=== PATIENT | female | born 1985 | race African-American/Black ===

== ENCOUNTER 2023-01-28 08:38 | Emergency (ER) | payer MEDICAID ==
[~2023-01-28] VITALS: Ht 170.2 cm; Wt 80.4 kg
[~2023-01-28 08:38] MED LIST: ALBUPOW26
[2023-01-28 09:30] VITALS: BP 109/69; PULSE 75; RESP 16; TEMP 98.5; O2SAT 99
[2023-01-28] MEDS ORDERED: CEPH500C PO (10:03)
[2023-01-28] MEDS ORDERED: ERY05OO OP (10:03)
== END 2023-01-28 10:09 | disposition home or self-care (01) ==
LOC: ER 08:38
DX: H00.14 Chalazion left upper eyelid (principal); J45.909 Unspecified asthma, uncomplicated; Z79.2 Long term (current) use of antibiotics; Z79.899 Other long term (current) drug therapy

== ENCOUNTER 2024-03-24 06:06 | Emergency (ER) | payer MEDICAID ==
[~2024-03-24] VITALS: Ht 170.2 cm; Wt 77.7 kg
[~2024-03-24 06:06] MED LIST changes: +CEPH500C PO; +ERY05OO OP
--- NOTE | 2024-03-24 06:46 | ED.PDOC ---
Musculoskeletal HPI Comments 38Y F presents to ED for chief complaint fall injury. Pt states she slipped on water yesterday at approximately 1800, causing her to fall and land on the left side of her body. Pt now presents with lt shoulder pain, lt forearm pain, and lt knee pain. Pt also has a dime-sized bruise on the lt knee. Pt denies head trauma and LOC. No other symptoms reported. Chief Complaint: Fall Injury Time Seen by MD: 06:25 Primary Care Provider: JANE Rosales Notes: Nurses Notes, Medications, Allergies Allergies: Coded Allergies: NO KNOWN ALLERGIES (Unverified , 12/13/11) Home Meds Active Scripts Cephalexin Monohydrate (Cephalexin) 500 Mg Cap, 500 MG PO QID for 5 Days, #20 CAP 0 Refills Prov:HETAL INGRAM PAYROLL HUMAN RESOURCES ASSISTANT 01/28/23 Erythromycin (Erythromycin) 5 Mg/Gm Oin, 1 APPLIC OP TID for 7 Days, #5 GRAMS 0 Refills Prov:HETAL INGRAM PAYROLL HUMAN RESOURCES ASSISTANT 01/28/23 Reported Medications Albuterol (Albuterol) Pow 12/13/11 Information Source: Patient Mode of Arrival: Ambulatory Location: Left Extremity Location: Forearm, Knee, Shoulder Timing: Hours Severity: Mild Able to Move Extremity: Yes Bear Weight: Limited Pain: Mild Mechanism: Unknown Circumstances: Fall Onset of Symptoms: After Trauma Symptoms: Pain DVT Risk Factors: NONE Associated signs and symptoms: Shoulder pain, Forearm pain, Knee pain Past Medical History PAST MEDICAL HISTORY: Asthma 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: No 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 INSPECTOR History Family History Family History: Reviewed,noncontributory to illness, Unobtainable Social History Smoker: Non-Smoker Alcohol: Occasionally Drugs: Marijuana Lives In: Home Constitutional: denies: chills, diaphoresis, fatigue, fever, malaise, sweats, weakness, others EENTM: denies: blurred vision, double vision, ear bleeding, ear discharge, ear drainage, ear pain, ear ringing, eye pain, eye redness, hearing loss, mouth pain, mouth swelling, nasal discharge, nose bleeding, nose congestion, nose pain, photophobia, tearing, throat pain, throat swelling, voice changes, others Respiratory: denies: cough, hemoptysis, orthopnea, SOB at rest, shortness of breath, SOB with excertion, stridor, wheezing, others Cardiovascular: denies: chest pain, dizzy spells, diaphoresis, Dyspnea on exert ion, edema, irregular heart beat, left arm pain, lightheadedness, palpitations, PND, syncope, others Gastrointestinal: denies: abdomen distended, abdominal pain, blood streaked bowels, constipated, diarrhea, dysphagia, difficulty swallowing, hematemesis, melena, nausea, poor appetite, poor fluid intake, rectal bleeding, rectal pain, vomiting, others Genitourinary: denies: abnormal vagina bleeding, burning, dyspareunia, dysuria, flank pain, frequency, hematuria, incontinence, pain, , vagina discharge, urgency, others Neurological: denies: dizziness, fainting, headache, left sided numbness, left sided weakness, numbness, paresthesia, pre-existing deficit, right sided numbness, right sided weakness, seizure, speech problems, tingling, tremors, weakness, others Musculoskeletal: reports: others (lt knee pain, lt forearm pain, lt shoulder pain); denies: back pain, gout, joint pain, joint swelling, muscle pain, muscle stiffness, neck pain Integumetry: denies: bruises, change in color, change in hair/nails, dryness, laceration, lesions, lumps, rash, wounds, others Allergic/Immunocompromised: denies: Difficulty Healing, Frequent Infections, Hives, Itching, others Hematologic/Lymphatic: denies: anemia, blood clots, easy bleeding, easy bruising, swollen glands, others Endocrine: denies: excessive hunger, excessive sweating, excessive thirst, excessive urination, flushing, intolerance to cold, intolerance to heat, unexplained weight gain, unexplained weight loss, others Psychiatric: denies: anxiety, bipolar disorder, depression, hopeless, panic disorder, schizophrenia, sleepless, suicidal, others All Other Systems: Reviewed and Negative Physical Exam General Appearance: No Apparent Distress, Normal HEENT: Normal ENT Inspection, Pharynx Normal, TMs Normal Neck: Full Range of Motion, Non-Tender, Normal, Normal Inspection Respiratory: Chest Non-Tender, Lungs Clear, No Accessory Muscle Use, No Respiratory Distress, Normal Breath Sounds Cardiovascular: No Edema, No JVD, No Murmur, No Gallop, Normal Peripheral Pulses, Regular Rate/Rhythm Breast Exam: Deferred Gastrointestinal: No Organomegaly, Non Tender, No Pulsatile Mass, Normal Bowel Sounds, Soft Genitalia: Deferred Pelvic: Deferred Rectal: Deferred Extremities: No calf tenderness, Normal capillary refill, Normal inspection, Normal range of motion, Non-tender, No pedal edema Musculoskeletal : Location: Left Extremity Location: Forearm, Shoulder Apperance: Normal, Tenderness: Mild Neurologic: Alert, 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 Was a procedure done?: No Differential Diagnosis EXT Differential Diagnosis: Fracture, Sprain, Dislocation, Laceration, DJD, Contusion, Strain, Neurovascular injury, Arthritis, Bursitis X-Ray, Labs, Meds, VS Vital Signs Date Time Temp Pulse Resp B/P (MAP) Pulse Ox O2 Delivery O2 Flow Rate FiO2 03/24/24 07:47 Room Air* 0 21 03/24/24 07:44 97.7 67 16 121/84 (96) 99 97.7 03/24/24 07:44 67 16 99 Room Air 03/24/24 06:23 98.0 87 16 121/99 (106) 98 Current Medications Medications (Trade) Dose Ordered Sig/Korina Route Start Time Stop Time Status Last Admin Acetaminophen (Tylenol Tablet) 650 mg ONCE ONCE PO 03/24/24 06:30 03/24/24 06:31 DC 03/24/24 07:39 [place] [id number] Ph: [phone] DIAGNOSTIC IMAGING Diagnostic Imaging Report : [id number] Signed PATIENT: ISAM YANES ACCT: [id number] UNIT: [id number] : 1985 LOC: ER ROOM / BED: / AGE / SEX: 38 / F ADM STATUS: REG ER SERVICE 7 ORDERING PHYSICIAN: KATHLEEN BENSON MD PROCEDURE(s): LSHD2 - L SHOULDER 2+ VIEW XRAY REASON: injury ORDER NUMBER(s): [id number], ACCESSION NUMBER(s): [id number] PROCEDURE: Left shoulder radiographs. INDICATION: injury TECHNIQUE: 3 views of the left shoulder were obtained. COMPARISON: None FINDINGS: There is no evidence of fracture or dislocation. Joint spaces are ma intained. The soft tissues are unremarkable. IMPRESSION: 1. No fracture or dislocation. ATED BY: LINDY CORNEJO MD DICTATED DATE/TIME: 03/24/24713 SIGNED BY: LINDY CORNEJO MD SIGNED DATE/TIME: 03/24/24713 CC: [place] [address] Ph: [phone] DIAGNOSTIC IMAGING Diagnostic Imaging Report : [id number] Signed PATIENT: ISMA YANES ACCT: [id number] UNIT: [id number] : 1985 LOC: ER ROOM / BED: / AGE / SEX: 38 / F ADM STATUS: REG ER SERVICE 7 ORDERING PHYSICIAN: KATHLEEN BENSON MD PROCEDURE(s): LFOR - L FOREARM XRAY REASON: injury ORDER NUMBER(s): [id number], ACCESSION NUMBER(s): [id number] XY L FOREARM XRAY INDICATION: injury TECHNICAL DATA: Frontal and lateral views were obtained of the left forearm. COMPARISON: None FINDINGS: There is no osseous abnormality. Soft tissues are normal. IMPRESSION: 1. No acute fracture or dislocation. ATED BY: LINDY CORNEJO MD DICTATED DATE/TIME: 03/24/24714 SIGNED BY: LINDY CORNEJO MD SIGNED DATE/TIME: 03/24/24714 CC: [place] [address] Ph: [phone] DIAGNOSTIC IMAGING Diagnostic Imaging Report : [id number] Signed PATIENT: ISMA YANES ACCT: [id number] UNIT: [id number] : 1985 LOC: ER ROOM / BED: / AGE / SEX: 38 / F ADM STATUS: REG ER SERVICE 7 ORDERING PHYSICIAN: KATHLEEN BENSON MD PROCEDURE(s): LKNE3 - L KNEE 3V XRAY REASON: injury ORDER NUMBER(s): [id number], ACCESSION NUMBER(s): [id number] XY L KNEE 3V XRAY, INDICATION: injury TECHNICAL DATA: Frontal , oblique and lateral views were obtained of the left knee. COMPARISON: None FINDINGS: No fracture is identified. Medial, lateral and patellofemoral compartment joint spaces are maintained. Alignment is anatomic. Soft tissues are within normal limits. No joint effusion is demonstrated. IMPRESSION: 1. No acute fracture or dislocation of the left knee. ATED BY: LINDY CORNEJO MD DICTATED DATE/TIME: 03/24/24715 SIGNED BY: LINDY CORNEJO MD SIGNED DATE/TIME: 03/24/24715 CC: Time of 1ST Reevaluation: 06:55 Reevaluation 1ST: Unchanged Time of 2ND Reevaluation: 08:07 Reevaluation 2ND: Improved Patient Education/Counseling: Diagnosis, Treatment, Prognosis, Need For Follow Up Family Education/Counseling: No Family Present Additional Information I reviewed the following notes from patient's past medical encounters: [facility] ER 01/28/2023, 09/17/2017, 12/12/2014 The following tests were ordered, and results were reviewed by me: lt knee x- ray, lt forearm x-ray, lt shoulder x-ray Additional Information was gathered from interviewing the following independent historians: None I reviewed and agreed with the following test results read by other providers: lt knee x-ray, lt forearm x-ray, lt shoulder x-ray I discussed treatment and results with medical personnel. Departure 1 Departure Time of Disposition: 08:07 Impression: Primary Impression: Falling Additional Impressions: Left shoulder strain Qualified Codes: S46.912A - Strain of unspecified muscle, fascia and tendon at shoulder and upper arm level, left arm, initial encounter Strain of forearm, left Qualified Codes: S56.912A - Strain of unspecified muscles, fascia and tendons at forearm level, left arm, initial encounter Contusion of knee, left Qualified Codes: S80.02XA - Contusion of left knee, initial encounter Disposition: HOME / SELF CARE / HOMELESS Condition: Good e-Prescriptions Ibuprofen Micronized (MOTRIN TABLET) 600 Mg Tb 600 MG PO TID PRN, #40 TAB *Black box warning-NSAIDS can increase risk of PR & hypertension, GI irritation, ulceration, bleed, perferation. Do not use post cardiac surgery. Use short duration/lowest effective dose. Prov: KATHLEEN BENSON MD 03/24/24 Discharged With: Self Critical Care Note Critical Care Time?: No Stability Stability form required: No Heart Score Heart Score: Heart Score Response (Comments) Value History N/A 0 EKG N/A 0 Age N/A 0 Risk Factors N/A 0 Troponin N/A 0 Total 0 I personally scribed for KATHLEEN BENSON MD ([facility] on 03/24/24 at 06:45. Electronically submitted by Pallavi Pereira ([employer]). I personally scribed for KATHLEEN BENSON MD ([email or web address]) on 03/24/24 at 07:46. Electronically submitted by Pallavi Pereira ([employer]). KATHLEEN BENSON MD Mar 24, 2024 06:45
--- NOTE | 2024-03-24 07:17 | DVH ---
XY L FOREARM XRAY INDICATION: injury TECHNICAL DATA: Frontal and lateral views were obtained of the left forearm. COMPARISON: None FINDINGS: There is no osseous abnormality. Soft tissues are normal. IMPRESSION: 1. No acute fracture or dislocation.
--- NOTE | 2024-03-24 07:17 | DVH ---
PROCEDURE: Left shoulder radiographs. INDICATION: injury TECHNIQUE: 3 views of the left shoulder were obtained. COMPARISON: None FINDINGS: There is no evidence of fracture or dislocation. Joint spaces are maintained. The soft tis sues are unremarkable. IMPRESSION: 1. No fracture or dislocation.
--- NOTE | 2024-03-24 07:18 | DVH ---
XY L KNEE 3V XRAY, INDICATION: injury TECHNICAL DATA: Frontal , oblique and lateral views were obtained of the left knee. COMPARISON: None FINDINGS: No fracture is identified. Medial, lateral and patellofemoral compartment joint spaces are maintained . Alignment is anatomic. Soft tissues are within normal limits. No joint effusion is demonstrated. IMPRESSION: 1. No acute fracture or dislocation of the left knee.
[2024-03-24] MEDS: ACETAMINOPHEN 325 MG TAB PO ONE (07:39)
[2024-03-24 07:44] VITALS: BP 121/84; PULSE 67; RESP 16; TEMP 97.7; O2SAT 99
[2024-03-24] MEDS ORDERED: IBU600T PO (08:08)
== END 2024-03-24 08:19 | disposition home or self-care (01) ==
LOC: ER 06:06
DX: S46.912A Strain of unspecified muscle, fascia and tendon at shoulder and upper arm level, left arm, initial encounter (principal); S56.912A Strain of unspecified muscles, fascia and tendons at forearm level, left arm, initial encounter; S80.02XA Contusion of left knee, initial encounter; J45.909 Unspecified asthma, uncomplicated; F15.90 Other stimulant use, unspecified, uncomplicated; Z98.890 Other specified postprocedural states; Z79.899 Other long term (current) drug therapy; W01.0XXA Fall on same level from slipping, tripping and stumbling without subsequent striking against object, initial encounter; Y93.89 Activity, other specified; Y92.89 Other specified places as the place of occurrence of the external cause; Y99.8 Other external cause status
CPT/HCPCS: 73030; 73090; 73562

== ENCOUNTER 2024-05-15 07:33 | Emergency (ER) | payer MEDICAID ==
[~2024-05-15] VITALS: Ht 170.2 cm; Wt 77.4 kg
[~2024-05-15 07:33] MED LIST changes: +IBU600T PO
[2024-05-15 08:01] VITALS: BP 114/84; PULSE 94; RESP 16; TEMP 98.9; O2SAT 100
[2024-05-15] MEDS ORDERED: BACI1OIN45 EX (08:42)
[2024-05-15] MEDS ORDERED: CEFD300C2 PO (08:42)
--- NOTE | 2024-05-15 08:42 | ED.PDOC ---
History of Present Illness(SKN HPI Comments 38-year-old female presented to the [facility] complaining of vesicle to the right great toe happened about two weeks no signs of infection at this time Chief Complaint: Wound Check Time Seen by MD: 07:46 Primary Care Provider: JANE History of Present Illness: Nurses Notes, Medications, Allergies Allergies: Coded Allergies: NO KNOWN ALLERGIES (Unverified , 12/13/11) Home Meds Active Scripts Cefdinir (Cefdinir) 300 Mg Cap, 1 CAP PO BID for 7 Days, #14 CAP Prov:FORD EMERSON MD 05/15/24 Bacitracin-Polymyxin B (Neosporin 500-78937 Unit/gm) 1 Oin Oin, 1 OIN EX BID for 10 Days, #30 OIN Prov:FORD EMERSON MD 05/15/24 Ibuprofen Micronized (MOTRIN TABLET) 600 Mg Tb, 600 MG PO TID PRN, #40 TAB *Black box warning-NSAIDS can increase risk of SD & hypertension, GI irritation, ulceration, bleed, perferation. Do not use post cardiac surgery. Use short duration/lowest effective dose. Prov:KATHLEEN BENSON MD 03/24/24 Cephalexin Monohydrate (Cephalexin) 500 Mg Cap, 500 MG PO QID for 5 Days, #20 CAP 0 Refills Prov:HETAL INGRAM NP 01/28/23 Erythromycin (Erythromycin) 5 Mg/Gm Oin, 1 APPLIC OP TID for 7 Days, #5 GRAMS 0 Refills Prov:HETAL INGRAM NP 01/28/23 Reported Medications Albuterol (Albuterol) Pow 12/13/11 Information Source: Patient Mode of Arrival: Ambulatory Severity: Mild Timing: Weeks Duration: Since onset Location: Other (Great toe) Mechanism: Spontaneous Onset Object: Unknown Wound Type: Other (Vesicle) Tetanus: UTD Associated Signs and Symptoms: None Past Medical History PAST MEDICAL HISTORY: Asthma, Denies Surgical 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: DIRECTOR 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: No Pertinent DIRECTOR 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 Family History Family History: Reviewed,noncontributory to illness, Unobtainable Social History Smoker: Non-Smoker Alcohol: Occasionally Drugs: Marijuana Lives In: Home Constitutional: denies: chills, diaphoresis, fatigue, fever, malaise, sweats, weakness, others EENTM: denies: blurred vision, double vision, ear bleeding, ear discharge, ear drainage, ear pain, ear ringing, eye pain, eye redness, hearing loss, mouth pain, mouth swelling, nasal discharge, nose bleeding, nose congestion, nose pain, photophobia, tearing, throat pain, throat swelling, voice changes, others Respiratory: denies: cough, hemoptysis, orthopnea, SOB at rest, shortness of breath, SOB with excertion, stridor, wheezing, others Cardiovascular: denies: chest pain, dizzy spells, diaphoresis, Dyspnea on exertion, edema, irregular heart beat, left arm pain, lightheadedness, pa lpitations, PND, syncope, others Gastrointestinal: denies: abdomen distended, abdominal pain, blood streaked bowels, constipated, diarrhea, dysphagia, difficulty swallowing, hematemesis, melena, nausea, poor appetite, poor fluid intake, rectal bleeding, rectal pain, vomiting, others Genitourinary: denies: abnormal vagina bleeding, burning, dyspareunia, dysuria, flank pain, frequency, hematuria, incontinence, pain, , vagina discharge, urgency, others Neurological: denies: dizziness, fainting, headache, left sided numbness, left sided weakness, numbness, paresthesia, pre-existing deficit, right sided numbness, right sided weakness, seizure, speech problems, tingling, tremors, weakness, others Musculoskeletal: reports: back pain, gout, joint pain, joint swelling, muscle pain, muscle stiffness, neck pain, others Integumetry: reports: others (Open vesicle no infection); denies: bruises, change in color, change in hair/nails, dryness, laceration, lesions, lumps, rash, wounds Allergic/Immunocompromised: reports: Difficulty Healing Hematologic/Lymphatic: denies: anemia, blood clots, easy bleeding, easy bruising, swollen glands, others Endocrine: denies: excessive hunger, excessive sweating, excessive thirst, excessive urination, flushing, intolerance to cold, intolerance to heat, unexplained weight gain, unexplained weight loss, others Psychiatric: denies: anxiety, bipolar disorder, depression, hopeless, panic disorder, schizophrenia, sleepless, suicidal, others All Other Systems: Reviewed and Negative Physical Exam General Appearance: No Apparent Distress, Normal HEENT: Normal ENT Inspection, PERRL/EOMI Neck: Full Range of Motion, Non-Tender, Normal, Normal Inspection Respiratory: Chest Non-Tender, Lungs Clear, No Accessory Muscle Use, No Respiratory Distress, Normal Breath Sounds Cardiovascular: No Edema, No JVD, No Murmur, No Gallop, Normal Peripheral Pulses, Regular Rate/Rhythm Breast Exam: Deferred Gastrointestinal: No Organomegaly, Non Tender, No Pulsatile Mass, Normal Bowel Sounds, Soft Genitalia: Deferred Pelvic: Deferred Rectal: Deferred Extremities: No calf tenderness, Normal capillary refill, Normal inspection, Normal range of motion, Non-tender, No pedal edema Neurologic: 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 Was a procedure done?: No Differential Diagnosis (INTG) Differential Diagnosis: Abrasion, Cellulitis Differential Diagnosis: Contact Dermatitis Differential Diagnosis: Abrasion Abscess: N/A Differential Diagnosis: N/A X-Ray, Labs, Meds, VS Vital Signs Date Time Temp Pulse Resp B/P (MAP) Pulse Ox O2 Delivery O2 Flow Rate FiO2 05/15/24 08:01 98.9 94 16 114/84 (94) 100 98.9 05/15/24 08:01 94 16 100 Room Air 05/15/24 07:45 98.9 94 16 114/84 (94) 100 Current Medications Medications (Trade) Dose Ordered Sig/Korina Route Start Time Stop Time Status Last Admin Bacitracin 1 applic ONCE ONCE TOP 05/15/24 08:45 05/15/24 08:49 DC 05/15/24 08:51 X-Ray, Labs, Meds, VS Comment 38-year-old black female presented to the fast track With an open vesicle to the right great toe no signs of infection at this time Patient will be following with the PCP Time of 1ST Reevaluation: 08:50 Reevaluation 1ST: Unchanged Consultation: PCP Patient Education/Counseling: Diagnosis, Treatment, Prognosis, Need For Follow Up Family Education/Counseling: Diagnosis, Treatment, Prognosis, Need For Follow Up, No Family Present Departure 1 Departure Time of Disposition: 08:37 Impression: Primary Impression: Open wound of great toe Qualified Codes: S91.101A - Unspecified open wound of right great toe without damage to nail, initial encounter Disposition: HOME / SELF CARE / HOMELESS Condition: Good Additional Instructions: Peroxide apply Neosporin ointment and medication for five days e-Prescriptions Cefdinir (Cefdinir) 300 Mg Cap 1 CAP PO BID for 7 Days, #14 CAP Prov: FORD EMERSON MD 05/15/24 Bacitracin-Polymyxin B (Neosporin [id number] Unit/gm) 1 Oin Oin 1 OIN EX BID for 10 Days, #30 OIN Prov: FORD EMERSON MD 05/15/24 Discharged With: Self Critical Care Note Critical Care Time?: No Stability Stability form required: No Heart Score Heart Score: Heart Score Response (Comments) Value History N/A 0 EKG N/A 0 Age <45 0 Risk Factors No known risk factors 0 Troponin N/A 0 Total 0 FORD EMERSON MD May 15, 2024 08:42
[2024-05-15] MEDS: BACITRACIN TOP OINT 1 UD PKG TOP ONE (08:51)
== END 2024-05-15 08:52 | disposition home or self-care (01) ==
LOC: ER 07:33
DX: S91.101D Unspecified open wound of right great toe without damage to nail, subsequent encounter (principal); J45.909 Unspecified asthma, uncomplicated; Z79.899 Other long term (current) drug therapy; Z98.890 Other specified postprocedural states; X58.XXXD Exposure to other specified factors, subsequent encounter

== ENCOUNTER 2024-07-16 17:55 | Emergency (ER) | payer MEDICAID ==
[~2024-07-16] VITALS: Ht 170.2 cm; Wt 81.0 kg
[~2024-07-16 17:55] MED LIST changes: +BACI1OIN45 EX; +CEFD300C2 PO
[2024-07-16 18:30] VITALS: BP 126/85; PULSE 80; RESP 16; TEMP 97.7; O2SAT 95
[2024-07-16] MEDS ORDERED: METH4PAK PO (18:38)
[2024-07-16] MEDS ORDERED: CEFD300C2 PO (18:38)
[2024-07-16] MEDS ORDERED: CLOTCRE3 EX (18:40)
--- NOTE | 2024-07-16 18:40 | ED.PDOC ---
Eye-HPI HPI Comments C/O LEFT EAR PAIN AND MUFFLED HEARING. DENIES INJURY. EDEMA NOTD TO EXTERNAL EAR CANAL. Chief Complaint: Earache Time Seen by MD: 18:06 Primary Care Provider: JANE Rosales Notes: Nurses Notes, Medications, Allergies Allergies: Coded Allergies: NO KNOWN ALLERGIES (Unverified , 12/13/11) Home Meds Active Scripts Clotrimazole W/ Betamethasone (Clotrimazole/Betamethason 1-0.05 %) 1 Cre Cre, 1 APPLIC EX BID for 7 Days, #15 GRAMS Prov:SRI AYALA JUMPBASTING COLLAR BASTER 07/16/24 Methylprednisolone (Medrol Dosepak) 4 Mg Robby, 4 MG PO UD for 6 Days, #21 TAB UAD Prov:SRI AYALA JUMPBASTING COLLAR BASTER 07/16/24 Cefdinir (Cefdinir) 300 Mg Cap, 1 CAP PO BID for 7 Days, #14 CAP Prov:SRI AYALA JUMPBASTING COLLAR BASTER 07/16/24 Cefdinir (Cefdinir) 300 Mg Cap, 1 CAP PO BID for 7 Days, #14 CAP Prov:FORD EMERSON MD 05/15/24 Bacitracin-Polymyxin B (Neosporin 500-06863 Unit/gm) 1 Oin Oin, 1 OIN EX BID for 10 Days, #30 OIN Prov:FORD EMERSON MD 05/15/24 Ibuprofen Micronized (MOTRIN TABLET) 600 Mg Tb, 600 MG PO TID PRN, #40 TAB *Black box warning-NSAIDS can increase risk of UT & hypertension, GI irritation, ulceration, bleed, perferation. Do not use post cardiac surgery. Use short duration/lowest effective dose. Prov:KATHLEEN BENSON MD 03/24/24 Cephalexin Monohydrate (Cephalexin) 500 Mg Cap, 500 MG PO QID for 5 Days, #20 CAP 0 Refills Prov:HETAL INGRAM NP 01/28/23 Erythromycin (Erythromycin) 5 Mg/Gm Oin, 1 APPLIC OP TID for 7 Days, #5 GRAMS 0 Refills Prov:HETAL INGRAM [employer]DING CONSULTANT 01/28/23 Reported Medications Albuterol (Albuterol) Pow 12/13/11 Information Source: Patient Mode of Arrival: Ambulatory Past Medical History PAST MEDICAL HISTORY: Asthma, Denies Surgical History: SCALE ADJUSTER History: No Pertinent SCALE ADJUSTER History Family History Family History: Reviewed,noncontributory to illness, Unobtainable Social History Smoker: Non-Smoker Alcohol: Occasionally Drugs: Marijuana Lives In: Home Constitutional: denies: chills, diaphoresis, fatigue, fever, malaise, sweats, weakness, others EENTM: reports: ear pain; denies: blurred vision, double vision, ear bleeding, ear discharge, ear drainage, ear ringing, eye pain, eye redness, hearing loss, mouth pain, mouth swelling, nasal discharge, nose bleeding, nose congestion, nose pain, photophobia, tearing, throat pain, throat swelling, voice changes, others Respiratory: denies: cough, hemoptysis, orthopnea, SOB at rest, shortness of breath, SOB with excertion, stridor, wheezing, others Cardiovascular: denies: chest pain, dizzy spells, diaphoresis, Dyspnea on exe rtion, edema, irregular heart beat, left arm pain, lightheadedness, palpitations, PND, syncope, others Gastrointestinal: denies: abdomen distended, abdominal pain, blood streaked bowels, constipated, diarrhea, dysphagia, difficulty swallowing, hematemesis, melena, nausea, poor appetite, poor fluid intake, rectal bleeding, rectal pain, vomiting, others Genitourinary: denies: abnormal vagina bleeding, burning, dyspareunia, dysuria, flank pain, frequency, hematuria, incontinence, pain, , vagina discharge, urgency, others Neurological: denies: dizziness, fainting, headache, left sided numbness, left sided weakness, numbness, paresthesia, pre-existing deficit, right sided numbness, right sided weakness, seizure, speech problems, tingling, tremors, weakness, others Musculoskeletal: denies: back pain, gout, joint pain, joint swelling, muscle pain, muscle stiffness, neck pain, others Integumetry: denies: bruises, change in color, change in hair/nails, dryness, laceration, lesions, lumps, rash, wounds, others Allergic/Immunocompromised: denies: Difficulty Healing, Frequent Infections, Hives, Itching, others Hematologic/Lymphatic: denies: anemia, blood clots, easy bleeding, easy bruising, swollen glands, others Endocrine: denies: excessive hunger, excessive sweating, excessive thirst, excessive urination, flushing, intolerance to cold, intolerance to heat, unexplained weight gain, unexplained weight loss, others Psychiatric: denies: anxiety, bipolar disorder, depression, hopeless, panic disorder, schizophrenia, sleepless, suicidal, others Physical Exam General Appearance: No Apparent Distress, Normal HEENT: Pharynx Normal, TMs Normal, Other (Left ear canal with moderate to severe edema noted trace erythema no noted drainage TM not visualized) Neck: Full Range of Motion, Non-Tender Respiratory: Lungs Clear, No Respiratory Distress, Normal Breath Sounds Cardiovascular: No Edema, No JVD, No Murmur, No Gallop, Normal Peripheral Pulses, Regular Rate/Rhythm Breast Exam: Deferred Gastrointestinal: No Organomegaly, Non Tender, No Pulsatile Mass, Normal Bowel Sounds, Soft Genitalia: Deferred Pelvic: Deferred Rectal: Deferred Extremities: No calf tenderness, Normal capillary refill, Normal inspection, Normal range of motion, Non-tender, No pedal edema Musculoskeletal : Apperance: Normal Neurologic: 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 Was a procedure done?: No EENT DIFF Eye: N/A Ear: Cerumen Impaction, Foreign Body, Otitis Externa, Barotrauma, Otitis Media, Perforation X-Ray, Labs, Meds, VS Vital Signs Date Time Temp Pulse Resp B/P (MAP) Pulse Ox O2 Delivery O2 Flow Rate FiO2 07/16/24 18:30 80 16 95 Room Air 07/16/24 18:30 97.7 80 16 126/85 (99) 95 97.7 07/16/24 18:12 97.7 80 16 126/85 (99) 95 97.7 Current Medications Medications (Trade) Dose Ordered Sig/Korina Route Start Time Stop Time Status Last Admin Dexamethasone Sodium Phosphate (Decadron Injection) 10 mg ONCE ONCE IM 07/16/24 18:45 07/16/24 18:46 DC 07/16/24 18:42 X-Ray, Labs, Meds, VS Comment Patient given Decadron 10 mg IM. Improvement in pain requesting discharge at this time. We will script antibiotics oral versus drops due to the amount of swelling. Cefdinir Medrol Dosepak script advised to take medications as prescribed side effects discussed. Advised to avoid any under water activities. Follow up with her PCP in 2 days as necessary. [id number] Tylenol or Motrin as needed for the pain per labeled dosing instructions. ER return precautions given patient indicates understanding and agrees with discharge plan of care. Time of 1ST Reevaluation: 18:10 Reevaluation 1ST: Unchanged Time of 2ND Reevaluation: 18:36 Reevaluation 2ND: Improved Patient Education/Counseling: Diagnosis, Treatment, Prognosis, Need For Follow Up Family Education/Counseling: No Family Present Departure 1 Departure Time of Disposition: 18:36 Impression: Primary Impression: Otitis externa Qualified Codes: H60.312 - Diffuse otitis externa, left ear Additional Impression: Fungal infection of foot Qualified Codes: B35.3 - Tinea pedis Disposition: 01 HOME / SELF CARE / HOMELESS Condition: Stable e-Prescriptions Clotrimazole W/ Betamethasone (Clotrimazole/Betamethason 1-0.05 %) 1 Cre Cre 1 APPLIC EX BID for 7 Days, #15 GRAMS Prov: SRI AYALAP 07/16/24 Methylprednisolone (Medrol Dosepak) 4 Mg Robby 4 MG PO UD for 6 Days, #21 TAB UAD Prov: SRI AYALA 07/16/24 Cefdinir (Cefdinir) 300 Mg Cap 1 CAP PO BID for 7 Days, #14 CAP Prov: SRI AYALA 07/16/24 Discharged With: Self Critical Care Note Critical Care Time?: No Stability Stability form required: No SRI AYALA July 16, 2024 18:40
[2024-07-16] MEDS: DexAMETHasone SOD PHOS 10MG/1ML VIAL INJ IM ONE (18:42)
== END 2024-07-16 18:46 | disposition home or self-care (01) ==
LOC: ER 17:55
DX: H60.92 Unspecified otitis externa, left ear (principal); B35.3 Tinea pedis; J45.909 Unspecified asthma, uncomplicated; F12.90 Cannabis use, unspecified, uncomplicated; Z79.899 Other long term (current) drug therapy
CPT/HCPCS: 96372; 99283; J1100